=== PATIENT | female | born 1985 | race Caucasian/White ===

== ENCOUNTER → 2017-11-19 12:52 | Outpatient (CLI) | payer OTHER, SELFPAY ==
--- NOTE | 2017-11-19 12:57 | MM_ITS ---
MM Dig screening mamm BI w/CAD CAD Screening COMPARISON: Digital mammograms 11/14/2016 INDICATION: There is a history of past cancer in patient's mother diagnosed at age 40 TECHNIQUE: Standard CC and MLO images were obtained. R2 CAD reviewed. FINDINGS: Moderate diffuse heterogenic density seen in both breast. There is no suspicious lesion and there are no suspicious microcalcifications. IMPRESSION: Moderate diffuse breast density with no suspicious lesion seen BI-RADS Category: 1 Negative RECOMMENDED FOLLOW-UP: 1YR - 1 YEAR FOLLOW-UP (A letter has been sent to the patient regarding results of the study.)
== END ==
PROVIDERS: PCP Nurse Practitioner Family; Visit Provider Nurse Practitioner Family
DX: Z12.31 Encounter for screening mammogram for malignant neoplasm of breast (principal)
CPT/HCPCS: 77067